=== PATIENT | male | born 1955 | race Caucasian/White ===

== ENCOUNTER 2019-01-09 09:35 | Inpatient (IN) | payer MEDICAID ==
--- NOTE | 2019-01-09 09:49 | EDPHY ---
H & P Time Seen by Provider: 01/09/19 09:45 HPI/ROS: CHIEF COMPLAINT: Chest pain HISTORY OF PRESENT ILLNESS: Patient has history of bypass surgery and multiple stents last place in 2014. He presents with his typical angina symptoms which are left-sided chest pain radiating to his left arm which started at 8:00 a.m. In front of his computer. He is usually pretty active and is an avid cyclist, but usually has his angina symptoms when he is sitting still which is typical. No cough or shortness of breath, no fevers or chills. REVIEW OF SYSTEMS: Eye: no change in vision ENT: no sore throat Cardiac: HPI Pulmonary: no cough or SOB Abdomen: no vomiting, diarrhea, abdominal pain Musculoskeletal: He does have a little bit of left leg tingling and pain today. Skin: no rash Neuro: no headache Constitutional: no fever : no urinary symptoms A comprehensive 10 point review of systems is otherwise negative aside from elements mentioned in the history of present illness. PAST MEDICAL HISTORY: VT in 2000, coronary bypass surgery, multiple stenting, appendectomy and tonsillectomy Social history: Current nonsmoker General Appearance: Alert and conversant, cooperative. Eyes: No scleral icterus. ENT, Mouth: Normal mucous membranes. Respiratory: Normal respiratory effort, breath sounds equal, lungs are clear to auscultation. Cardiovascular: Regular rate and rhythm. Gastrointestinal: Abdomen is soft and non tender. Neurological: Alert, face symmetric, normal motor and sensory in extremities. Skin: Warm and dry, no rashes. Musculoskeletal: No peripheral edema. No calf tenderness. Good peripheral pulses in both feet. Psychiatric: Not agitated. Emergency Department course/MDM: Patient took a baby aspirin and Plavix today. Call is placed to [facility]. Sublingual nitroglycerin. Does not have ST elevation on EKG. The symptoms are reminiscent of previous ACS. Reyna B for cardiology, 1010. Admission for cardiology consultation and further evaluation. Smoking Status: Former smoker Constitutional: Initial Vital Signs Temperature (C) 36.5 C 01/09/19 09:37 Heart Rate 57 L 01/09/19 09:37 Respiratory Rate 01/09/19 09:37 Blood Pressure 151/78 H 01/09/19 09:37 O2 Sat (%) 96 01/09/19 09:37 O2 Delivery Mode Room Air Allergies/Adverse Reactions: No Known Drug Allergies Allergy (Unknown, Verified 01/09/19 09:37) Unknown Home Medications: Medication Instructions Recorded Clopidogrel Bisulfate [Plavix (*)] 75 mg PO DAILY 08/26/14 Ranolazine [Ranexa] 500 mg PO BID #60 tab.er 08/27/14 Herbals/Supplements -Info Only 1 ea PO DAILY 09/22/14 Metoprolol Succinate Xr [Toprol Xl 50 mg PO HS 09/22/14 50 mg (*)] [place]-3 Fatty Acids [Fish Oil 1000 1,000 mg PO DAILY 09/22/14 mg (*)] Aspirin [Aspirin 81mg (*)] 81 mg PO DAILY 10/15/14 Multivitamins [Multivitamin (*)] 1 tab PO DAILY 10/15/14 Cholecalciferol Vit D3 [Vitamin D3 1,000 units PO DAILY 01/09/19 (*)] Simvastatin [Zocor] 20 mg PO HS 01/09/19 Vitamin B Complex [Vitamin B 1 each PO DAILY 01/09/19 Complex (OTC)] Medical Decision Making - Diagnostics EKG Interpretation: 12-lead EKG interpreted by me; official reading is in computer system. My interpretation is sinus rhythm with ID [id number] and incomplete right bundle branch block. Imaging Results: Imaging Impressions Chest X-Ray 01/09/19 09:58 Impression: 1. No acute pulmonary disease. 2. Previous cardiac surgery with atherosclerotic aorta. Imaging: I viewed and interpreted images myself Differential Diagnosis: Differential diagnosis considered for chest pain including but not limited to myocardial ischemia, aortic dissection, pericarditis, pulmonary embolus, chest wall pain, pleural inflammation and pulmonary infectious causes. Consult/Admit Bed Type: [facility] for Dr. Downs 1018 - Data Points Laboratory Results: Laboratory Results 01/09/19 09:50 01/09/19 09:50 01/09/19 01/09/19 01/09/19 09:54 09:50 09:50 WBC 3.65 10^3/uL L 10^3/uL (3.80-9.50) RBC 4.78 10^6/uL 10^6/uL (4.40-6.38) Hgb 15.1 g/dL g/dL (13.7-17.5) Hct 46.0 % % (40.0-51.0) MCV 96.2 fL fL (81.5-99.8) MCH 31.6 pg pg (27.9-34.1) MCHC 32.8 g/dL g/dL (32.4-36.7) RDW 14.0 % % (11.5-15.2) Plt Count 148 10^3/uL L 10^3/uL (150-400) MPV 9.2 fL fL (8.7-11.7) Neut % (Auto) 41.6 % % (39.3-74.2) Lymph % (Auto) 37.3 % % (15.0-45.0) [place] % (Auto) 16.7 % H % (4.5-13.0) Eos % (Auto) 3.3 % % (0.6-7.6) Baso % (Auto) 0.8 % % (0.3-1.7) Nucleat RBC Rel Count 0.0 % % (0.0-0.2) Absolute Neuts (auto) 1.52 10^3/uL L 10^3/uL (1.70-6.50) Absolute Lymphs (auto) 1.36 10^3/uL 10^3/uL (1.00-3.00) Absolute Monos (auto) 0.61 10^3/uL 10^3/uL (0.30-0.80) Absolute Eos (auto) 0.12 10^3/uL 10^3/uL (0.03-0.40) Absolute Basos (auto) 0.03 10^3/uL 10^3/uL (0.02-0.10) Absolute Nucleated RBC 0.00 10^3/uL 10^3/uL (0-0.01) Immature Gran % 0.3 % % (0.0-1.1) Immature Gran # 0.01 10^3/uL 10^3/uL (0.00-0.10) Sodium 138 mEq/L mEq/L (135-145) Potassium 4.6 mEq/L mEq/L (3.5-5.2) Chloride 103 mEq/L mEq/L (97-110) Carbon Dioxide 28 mEq/l mEq/l (22-31) Anion Gap 7 mEq/L mEq/L (6-14) BUN 29 mg/dL H mg/dL (7-23) Creatinine 0.9 mg/dL mg/dL (0.7-1.3) Estimated GFR > 60 Glucose 106 mg/dL H mg/dL (70-100) Calcium 9.0 mg/dL mg/dL (8.5-10.4) POC Troponin I 0.01 ng/mL ng/mL (0.00-0.08) Medications Given: Nitroglycerin (Nitrostat) 0.4 mg SL Q5M PRN PRN Reason: Chest Pain Last Admin: 01/09/19 10:03 Dose: 0.4 mg Discontinued Medications Sodium Chloride (Ns) 500 mls @ 1,000 mls/hr IV EDNOW ONE PRN Reason: Protocol Stop: 01/09/19 10:31 Last Admin: 01/09/19 10:05 Dose: 500 mls Point of Care Test Results: Chemistry 01/09/19 09:54 POC Troponin I 0.01 ng/mL ng/mL (0.00-0.08) Departure - Departure Disposition: [facility] Inpatient Acute Clinical Impression: Chest pain Qualifiers: Chest pain type: unspecified Qualified Code(s): R07.9 - Chest pain, unspecified Condition: Good
[2019-01-09] MEDS ORDERED: NITROGLYCERIN 0.4 MG BTL SL PRN (09:57)
--- NOTE | 2019-01-09 10:01 | CPEKG ---
Test Reason : OPEN Blood Pressure : / mmHG Vent. Rate : 056 BPM Atrial Rate : 056 BPM P-R Int : 224 ms QRS Dur : 114 ms QT Int : 424 ms P-R-T Axes : 034 044 041 degrees QTc Int : 410 ms Sinus rhythm Prolonged VT interval Probable left atrial enlargement Incomplete right bundle branch block Confirmed by Fabian Dale ([id number]) on 01/09/2019 10:00:19 AM Referred By: Fabian Dale Confirmed By:Fabian Dale
[2019-01-09] MEDS ORDERED: NS 500 ML IV ONE (10:02)
[2019-01-09 10:08] LABS: PLATELET COUNT 148 10^3/uL (150-400)
[2019-01-09] MEDS ORDERED: ONDANSETRON 4 MG/2 ML VIAL IVP PRN (12:43)
--- NOTE | 2019-01-09 13:21 | PDGENHP ---
History and Physical History and Physical: CC: Chest pain HISTORY: This patient with coronary disease/revacularizations comes in with chest pain he says mimicks his previous UT and angina pain. States he has onset this am 8 Oclock of ache in anterior L chest and L upper arm. Occaisional waxing and waning but essentially has been constantly present for 8 hours now. No SOB, no cough, no nausea, no sweats, no leg pain or swelling. No help from nitroglycerin tabs so far. No fever sxs There is no change in pain with any chest/shoulder movement, position change, or other activity. Not pleuritic. No other recent episodes of anginal like sxs, nor sx's of CHF or arrhythmia. No travel. Is a fanatic bicycler, rode 65 miles yesterday at usual pace with no symptoms or problems. 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 I have reviewed the list and ordered appropriate medicines. PHYSICAL EXAMINATION: Vital Signs: All stable without fever Screed Person: Sinus Examination: General: alert, oriented, good mentation, relaxed Skin: warm, dry, good color, no rash HEENT: normal Neck: no mass or jvd Chest: no tenderness in chest wall or L shoulder region Resps: relaxed Lungs: clear breath sounds Heart: regular, no murmur Abdomen: soft, nondistended, nontender, +BS, no mass Upper Extremities: normal w no arm edema Lower Extremities: no edema, warm No Bleeding or bruising Neurologic: normal speech/language, normal emergency man, no focal weakness IV site: looks normal LABORATORY DATA: Minimal neutropenia otherwise normal CBC BUN is slightly high on chemistry. 1st and second troponin normal RADIOLOGY STUDIES: I reviewed chest x-ray done in the ER which shows no acute abnormalities. He has sternal wires and bypasses visible. No heart failure or other cardiopulmonary features 12 LEAD EKG: I reviewed tracing from ER showing sinus rhythm without acute ischemic changes There is abnormality suggesting left atrial enlargement ECHOCARDIOGRAM: I reviewed images w dr Winchester. No wall motion abnormality, good EF, no valve issues ASSESSMENT: * Chest Pain at rest * so far rules out for UT * absence of hemodynamic instability, CHF or resp failure, or arrythmia * Known CAD, 8 years out from CABG, stents 1 month after cabg and again in 2013 * hypercholesterolemia on med PLANS: * observe on quality assurance monitor final * continue all usual meds * serial troponin * repeat ekg * cardiology is following * plan nuc stress in am unless he develops instability or other indication for angiography (nuc stress w lexiscan due to prior finding of inadequate HR responses on treadmill for valid test, likely due to B Blockers, age, and his unusually high fitness level) I have reviewed the patient's case in detail with Dr. Pineda Winchester I have reviewed the patient's past medical records as part of this assessment, including hospital and cardiology clinic records
--- NOTE | 2019-01-09 14:04 | HOSPPROG ---
Hospitalist Progress Note Objective: Vital Signs Temp Pulse Resp BP Pulse Ox 37.0 C 72 18 110/73 97 01/09/19 12:37 01/09/19 12:37 01/09/19 12:37 01/09/19 12:37 01/09/19 12:37 01/08/19 01/09/19 01/10/19 06:59 06:59 06:59 Intake Total 500 Balance 500 ICD10 Worksheet Patient Problems: Problems Problem Status Onset Chest pain Acute Angina at rest Acute CAD (coronary artery disease) Acute
--- NOTE | 2019-01-09 16:11 | GCON ---
[f rep st] CONSULTATION CARDIOLOGY CONSULTATION DATE OF CONSULTATION: 01/09/2019 PRIMARY HISTOLOGIC TECHNICIAN: Souleymane Lopez MD. REASON FOR CONSULTATION: We were asked by Dr. Downs to evaluate this patient for his chest pain. HISTORY OF PRESENT ILLNESS: The patient is a 63-year-old male with severe CAD. He had bypass in , multiple PCIs, and an NH in 2000. His most recent percutaneous intervention involved a complex ro tational atherectomy to his left main and LAD systems, and also stenting to his circumflex. This was done in September 2014. He has had episodes of chest pain since then. However, what brings him in t janet is severe left-sided chest pain with radiation into his left arm. He denies any associated dysp garo, diaphoresis, or nausea. Pain is currently present at a 7/10, and he feels like symptoms are not relieved with nitroglycerin administration. He is active and actually cycled 65 miles yesterday, which is his typical. He reports he does not ge t his heart rate above 109, likely secondary to the beta-ozzy effect in his system. PAST MEDICAL HISTORY: 1. Dyslipidemia. 2. Hypertension. 3. CAD. 4. PVCs. 5. BPH. ALLERGIES: No known drug allergies. FAMILY HISTORY: Positive for CAD. MEDICATIONS: Outpatient medications are listed as vitamin B-complex, vitamin D3, simvastatin, Ranexa , omega-3 fatty acids, multivitamin, metoprolol succinate, clopidogrel, and aspirin. SOCIAL HISTORY: The patient is , and his is present in the room. He is a nonsmoker. He has 2 children. He has moderate alcohol intake. REVIEW OF SYSTEMS: As per HPI. A complete 10-point review of systems was obtained and was negative for what is dictated. PHYSICAL EXAMINATION: VITAL SIGNS: Blood pressure of 110/73, heart rate 72, respirations 18, O2 sat uration 97% on room air, and temperature 98.6 degrees Fahrenheit. GENERAL: He is a very pleasant ma le, in no apparent distress. HEENT: Normocephalic, atraumatic. Eyes are without scleral icterus. HEART: Regular rate and rhythm without rubs, gallops, or murmurs. LUNGS: Clear to auscultation. A BDOMEN: Soft and nontender with normoactive bowel sounds. : No Jaquez present. SKIN: Warm and d ry with no peripheral edema. PSYCHIATRIC: Normal mood and affect. NEUROLOGICAL: No focal deficits detected. LABORATORY DATA: BMP with sodium 138, potassium 4.6, chloride 103, CO2 of 28, BUN 29, creatinine 0.9 , and glucose 106. Troponin 0.01. WBC 3.65, hemoglobin 15.1, hematocrit 46, and platelet count 148. Chest x-ray, personally reviewed, shows previous cardiac surgery with aortic atherosclerosis, witho ut any active pulmonary disease process. A 12-lead ECG, personally interpreted, demonstrates sinus r hythm with a left atrial abnormality and an incomplete right bundle branch block without ischemic daniel nges. His EKG is stable compared to previous office visits. His care was discussed with Dr. Lopez and Dr. Velazquez. IMPRESSION/PLAN: The patient is a 63-year-old male, who presents with chest pain. 1. Chest pain. He describes chest pain that has not resolved. He has been given 1 dose of nitrogly cerin thus far. He reports his symptoms typically do not respond to administration of nitroglycerin. His ECG currently appears nonischemic, and his troponin is reassuringly low. We will plan to cycle his cardiac enzymes and check an echocardiogram to rule out wall motion abnormality. If these are s table, he likely can proceed to nuclear stress testing in the morning. 2. Dyslipidemia. His last labs were reviewed. Last LDL was 65 in September. 3. Coronary artery disease. He has severe coronary artery disease with a very complex procedure in 2013. His films were reviewed today with Dr. Velazquez. /[id number]/MODL
--- NOTE | 2019-01-09 16:35 | ECHO ---
[email or web address] [address] [address] Main: [phone] Fax: [email or web address] Echocardiogram Name: LEANDRO FRY MR#: [id number] Study Date: 01/09/2019 Study Time: 01:58 PM Date of : 1955 Age: 63 year(s) Height: 188 cm (74 in.) Weight: 83.92 kg (185 lb.) BSA: 2.1 m2 Gender: Male Examination: Echo Indication: cp Image Quality: Adequate Contrast: Requested by: Reyna Gallardo BP: 124 mmHg/73 mmHg Heart Rate: Rhythm: Indication: cp Procedure Staff Account Maintenance Representative: Henrietta Davila [facility] Reading Physician: Pineda Winchester MD Requesting Provider: Conclusions: Normal study Measurements: Chambers Valvular Assessment AV/MV Valvular Assessment TV/PV Normal Normal Normal Name Value Range Name Value Range Name Value Range Ao Krys (2D): 3.6 cm (1.4 cm-2.6 AV Vmax: 1.11 m/s (1 m/s-1.7 TR Vmax: 1.86 mm/s ( - ) cm) m/s) TR PGmax: 14 mmHg ( - ) IVSd (2D): 1.2 cm (0.6 cm-1.1 AV maxP mmHg ( - ) syst. PAP: 19 mmHg ( - ) cm) AV meanP mmHg ( - ) PV Vmax: 1.18 m/s (0.6 m/s-0.9 LVDd (2D): 5.6 cm (4.2 cm-5.9 RACHELLE (VTI): 2.2 cm ( - ) m/s) cm) MV E Vmax: 0.69 m/s ( - ) PV PGmax: 6 mmHg ( - ) LVDs (2D): 3.8 cm (2.1 cm-4 MV A Vmax: 0.51 m/s ( - ) cm) MV E/A: 1.35 ( - ) LVPWd (2D): 1.0 cm (0.6 cm-1 cm) MV PHT: 0.073 s ( - ) LVOTd 2.0 cm 2.0 cm mm MVA (PHT): 3.0 s ( - ) LVEF (MOD4): 60 % (>=55 %) Visual EF: 55 % RVDd(2D): 3.9 cm (1.9 cm-3.8 cmmm) Continued Measurements: Chambers Valvular Assessment AV/MV Valvular Assessment TV/PV Name Value Name Value Name Value LADs: 3.9 cm MV DecTime: 243 m/s CVP (est.): 5 mmHg LADs Lon.6 cm MV E' Septal: 0.09 m/s LA Area: 20.6 cm2 MV E/E' Septal: 7.60 LA Volume: 74 ml MV E/E' Lateral: 4.70 Patient: LEANDRO FRY Study Date: 01/09/2019 Page 1 of 2 01:58 PM LA Volume Index: 35.2 ml/m2 RA Area: 22.1 cm2 Additional Vessels Name Value Ao Ascendin.5 cm Inferior Vena Cava: 2.2 cm Findings: Left Ventricle: Normal size left ventricle. Normal global systolic LV function. The ejection fraction is visually estimated to be 55 %. No regional wall motion abnormality. Normal diastolic LV function. Right Ventricle: Mildly dilated right ventricle. Normal RV function. Left Atrium: The left atrium is mildly dilated. Right Atrium: The right atrium is mildly dilated. Mitral Valve: The mitral valve is normal in appearance and function. Mild mitral valve regurgitation is present. No mitral stenosis is present. Aortic Valve: The aortic valve is tri-leaflet. Trivial aortic valve regurgitation. No aortic valve stenosis is present. Tricuspid Valve: The tricuspid valve is normal in appearance and function. Mild tricuspid regurgitation is present. The pulmonary artery pressure is normal. Right ventricular systolic pressure measures 19mmHg. Pulmonic Valve: The pulmonic valve is normal in appearance and function. Mild pulmonic valve regurgitation is noted. Aorta: The aorta is normal. Normal size aortic root measuring 3.6 cm. Normal size ascending aorta measuring 3.5 cm. IVC: The IVC is normal sized. Pericardium: No pericardial effusion. No pleural effusion. (No Signature Object) Patient: LEANDRO FRY Study Date: 01/09/2019 Page 2 of 2 01:58 PM [id number]
[2019-01-09] MEDS: ACETAMINOPHEN 325 MG TAB PO PRN (17:29)
[2019-01-09] MEDS ORDERED: ZOLPIDEM TARTRATE 5 MG TAB PO PRN (17:57)
[2019-01-09] MEDS: METOPROLOL SUCCINATE XR 50 MG TAB PO SCH (20:33)
[2019-01-09] MEDS: RANOLAZINE 500 MG TAB.ER PO SCH (20:33)
[2019-01-09] MEDS: MELATONIN 3 MG TAB PO SCH (20:33)
[2019-01-09] MEDS: ATORVASTATIN CALCIUM 10 MG TAB PO SCH (20:33)
[2019-01-10] MEDS: ACETAMINOPHEN 325 MG TAB PO PRN (09:25)
[2019-01-10] MEDS: MULTIVITAMINS 1 EACH TAB PO SCH (09:25)
[2019-01-10] MEDS: CHOLECALCIFEROL VIT D3 1,000 UNITS TAB PO SCH (09:25)
[2019-01-10] MEDS: VITAMIN B COMPLEX 1 EA CAP/TAB PO SCH (09:25)
[2019-01-10] MEDS: RANOLAZINE 500 MG TAB.ER PO SCH ×2 (09:25→21:31)
[2019-01-10] MEDS: ASPIRIN 81 MG CHEWABLE TAB PO SCH (09:25)
[2019-01-10] MEDS: OMEGA-3 FATTY ACIDS 1,000 MG CAP PO SCH (09:25)
[2019-01-10] MEDS: CLOPIDOGREL BISULFATE 75 MG TAB PO SCH (09:25)
[2019-01-10] MEDS ORDERED: REGADENOSON 0.4 MG/5 ML SYR IVP ONE (09:43)
--- NOTE | 2019-01-10 10:01 | ASMTCMCOM ---
CM Note CM Note Notes: Pt is a 63 y/o male who presented to the ED with left sided chest pain, he has a hx of CAD, bypass and multiple stents. \Pt is and lives with his in [place]. Pt is an avid cyclist and lives independently. No orders for OT/PT. No CM needs identified at this time; CM will follow for changes. D/C Plan: Anticipate independent. Date Signed: 01/10/2019 10:00 AM Electronically Signed By:Micaela Vallejo
--- NOTE | 2019-01-10 11:18 | PDCARPN ---
Cardiology Progress Note Assessment/Plan: Assessment/Plan: 63-year-old male with history of coronary disease. Status post CABG in 2010 and complex PCI including rotational atherectomy to the left main and LAD as well as left circumflex stenting in 2013. Other history includes hypertension and dyslipidemia. Admitted with left arm pain concerning for anginal equivalent. EKG nonischemic, echo without wall motion abnormalities , serial troponins are negative. Had Lexiscan nuclear stress test today. Stress only nuclear images show a territory of decreased perfusion in the septum , therefore rest imaging is planned for tomorrow. 1. Left arm pain: Not completely typical for his usual angina. Most of his testing has been reassuring. However, given his complex coronary history I do think we should plan for rest nuclear imaging tomorrow for better understanding of whether his septal defect is artifact, infarct, or ischemia. No indication for urgent cardiac catheterization. Continue medical management as he is already on. 2. Hypertension: Well controlled here 3. Dyslipidemia: Continue statin. Recent LDL was at goal. 4. Chronic history of PVCs: He is on metoprolol. Greater than 30 min spent in chart review, study review, direct patient contact. 01/10/19 11:50 Subjective: He feels well. He does not have actual chest pain but he does have ongoing left arm discomfort. His previous anginal equivalent was arm discomfort, jaw discomfort and back pain. This feels slightly different but because of his coronary history he came to the hospital. He does not have associated dyspnea, nausea, or diaphoresis. When he ambulates he does not have worsening arm pain. 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 Chacko and Dr. Adkins) Objective: Vital Signs (8 Hrs) Temp Pulse Resp BP Pulse Ox 01/10/19 08:00 36.9 C 54 L 20 120/75 93 01/10/19 04:00 36.7 C 50 L 18 113/72 92 Intake/Output (24 Hrs) 01/09/19 01/10/19 01/11/19 05:59 05:59 05:59 Intake Total 1000 Balance 1000 Intake: Oral (ml) 500 IV Infused (ml) 500 Other: Weight 83.915 kg Intake Quantity Yes Sufficient No acute distress. Regular rate and rhythm without murmur or gallop Lungs clear to auscultation without wheeze rhonchi or rales No lower extremity edema Result Diagrams: 01/09/19 09:50 01/09/19 09:50 Cardiac Labs: Cardiac Lab Results (72 Hrs) 01/09/19 01/09/19 18:22 13:50 Troponin I < 0.012 < 0.012 EKG: Serial EKGs reviewed and compared with prior outpatient EKG: Sinus rhythm with right bundle branch block. No ischemic changes. Telemetry: Sinus rhythm ICD10 Worksheet Patient Problems: Problems Problem Status Onset CAD (coronary artery disease) Acute Angina at rest Acute Chest pain Acute
[2019-01-10] MEDS: LITHIUM CARBONATE 300 MG TAB PO SCH (12:59)
--- NOTE | 2019-01-10 16:09 | PDMN ---
Medical Necessity Medical necessity: Change to IP, as of 01/10/19, per MD & MCG M-40; los >2 mn for ongoing management of L arm pain concerning for anginal equivalent; nuclear imaging shows decreased perfusion in septum (r/o artifact vs infarct vs ischemia ); requiring further workup & monitoring; comorbid complex coronary hx
--- NOTE | 2019-01-10 16:35 | CPR ---
[f rep st] NONINVASIVE CARDIAC PROCEDURE REPORT DATE OF PROCEDURE: 01/10/2019 PROCEDURE: Lexiscan injection of Lexiscan myocardial perfusion imaging study. INDICATION FOR STRESS TESTING: Chest pain, known history of coronary artery disease, right bundle br anch block. PRE: After obtaining informed consent, and ensuring patient's n.p.o. status for greater than 12 hour s, patient was placed on electrocardiogram. Initial EKG shows sinus rhythm; first-degree AV block; r ight bundle branch block; submillimeter ST elevation in anterior leads, suggesting possible early rep ol. Patient denies any chest pain, pressure, or symptoms suggesting of ischemia. Initial blood pres sure 112/76, saturation 95%. INJECTION: Patient was given Lexiscan slow IV push, followed by nuclear isotope. Within 1 minute of injection, the patient's heart rate did jump up to 90 beats per minute, no significant EKG changes, blood pressure was 133/87. Patient reporting no chest pain or pressure, but does report flushing sen sation. Within 5 minutes of injection, patient reporting all symptoms subsided, heart rate returning back down to 78 beats per minute. Blood pressure remained stable, saturation 96%. IMPRESSION: A 63-year-old male with known history of coronary artery disease, admitted for chest pre ssure, undergoing further risk stratifying with Lexiscan myocardial perfusion imaging study. No ches t pain, pressure, or symptoms suggestive of ischemia with injection. Did report mild flushing sensat ion, which dissipated within 5 minutes postinjection. Vital signs remained stable. No significant e lectrocardiogram changes throughout the procedure. Patient will be taken to nuclear medicine for pos t-stress imaging at this time. /[id number]/MODL
--- NOTE | 2019-01-10 16:57 | HOSPPROG ---
Hospitalist Progress Note Assessment/Plan: * Chest pain - reminiscent of previous angina -still having CP today -stress images abnormal - needs follow-up rest images * CAD/CABG/stent -extensive CAD history - well known to Dr. Lopez -on Ranexa * Hyperlipidemia -statin * Bipolar -[place] Subjective: Still with left arm/shoulder and chest pain today 03/20. Objective: Vital Signs Temp Pulse Resp BP Pulse Ox 36.4 C 61 18 101/54 L 94 01/10/19 12:00 01/10/19 12:00 01/10/19 12:00 01/10/19 12:00 01/10/19 12:00 Laboratory Tests 01/09/19 01/09/19 01/10/19 13:50 18:22 11:46 Troponin I < 0.012 < 0.012 < 0.012 hari ocasio regarding stress test today EKG viewed, my personal interpretation is - no acute ischemic change - Physical Exam Constitutional: no apparent distress, appears nourished, not in pain Cardiovascular: regular rate and rhythym, no murmur, rub, or gallop Respiratory: no respiratory distress, no rales or rhonchi, clear to auscultation Gastrointestinal: normoactive bowel sounds, soft, non-tender abdomen, no palpable masses Skin: no rashes or abrasions, no fluctuance, no induration Neurologic: AAOx3, sensation intact bilaterally Psychiatric: interacting appropriately, not anxious, not encephalopathic, thought process linear ICD10 Worksheet Patient Problems: Problems Problem Status Onset Chest pain Acute Angina at rest Acute CAD (coronary artery disease) Acute
[2019-01-10] MEDS ORDERED: LITHIUM CARBONATE 300 MG TAB PO SCH (21:00)
[2019-01-10] MEDS: ATORVASTATIN CALCIUM 10 MG TAB PO SCH (21:28)
[2019-01-10] MEDS: METOPROLOL SUCCINATE XR 50 MG TAB PO SCH (21:28)
[2019-01-10] MEDS: MELATONIN 3 MG TAB PO SCH (21:32)
[2019-01-11] MEDS: OMEGA-3 FATTY ACIDS 1,000 MG CAP PO SCH (08:11)
[2019-01-11] MEDS: CLOPIDOGREL BISULFATE 75 MG TAB PO SCH (08:11)
[2019-01-11] MEDS: ACETAMINOPHEN 325 MG TAB PO PRN (08:11)
[2019-01-11] MEDS: LITHIUM CARBONATE 300 MG TAB PO SCH (08:11)
[2019-01-11] MEDS: CHOLECALCIFEROL VIT D3 1,000 UNITS TAB PO SCH (08:11)
[2019-01-11] MEDS: RANOLAZINE 500 MG TAB.ER PO SCH (08:11)
[2019-01-11] MEDS: ASPIRIN 81 MG CHEWABLE TAB PO SCH (08:11)
[2019-01-11] MEDS: MULTIVITAMINS 1 EACH TAB PO SCH (08:11)
[2019-01-11] MEDS: VITAMIN B COMPLEX 1 EA CAP/TAB PO SCH (08:11)
[2019-01-11 11:56] VITALS: BP 123/63
[2019-01-11] MEDS ORDERED: KETOROLAC 30 MG/1 ML SDV IVP ONE (14:08)
--- NOTE | 2019-01-11 14:18 | PDCARPN ---
Cardiology Progress Note Assessment/Plan: Assessment/Plan: 63-year-old male with history of coronary disease. Status post CABG in 2010 and complex PCI including rotational atherectomy to the left main and LAD as well as left circumflex stenting in 2013. Other history includes hypertension and dyslipidemia. Admitted with left arm pain concerning for anginal equivalent. EKG nonischemic, echo without wall motion abnormalities , serial troponins are negative. Had Lexiscan nuclear stress test decreased perfusion in the septum, therefore rest imaging is planned for tomorrow. 1. Left arm pain: Not completely typical for his usual angina. Reassuring noninvasive imaging. No indication for urgent cardiac catheterization. Continue medical management as he is already on. Single dose of toradol to help distinguish musculoskeletal pain. Likely d/c home today with outpt f/u with Dr. Lopez. 2. Hypertension: Well controlled here 3. Dyslipidemia: Continue statin. Recent LDL was at goal. 4. Chronic history of PVCs: He is on metoprolol. d/w family and Dr. Chacko 01/11/19 14:13 Subjective: Still having left arm and left leg pain which is overall dissimilar to his prior angina. No SOB or nausea Reviewed/Discussed With: family, hospitalist Objective: Vital Signs (8 Hrs) Temp Pulse Resp BP Pulse Ox 01/11/19 11:53 36.9 C 58 L 20 123/63 H 95 01/11/19 08:00 36.4 C 58 L 16 111/64 94 Intake/Output (24 Hrs) 01/10/19 01/11/19 01/12/19 05:59 05:59 05:59 Intake Total 1390 170 Balance 1390 170 Intake: Oral (ml) 1390 170 Other: Output Comment Toilet per pt per pt Number of Voids Toilet 5 1 Number of Stools Toilet 1 1 No acute distress. Regular rate and rhythm without murmur rub gallop Lungs clear without wheezes rhonchi rales No lower extremity edema Result Diagrams: 01/09/19 09:50 01/09/19 09:50 Telemetry: Sinus rhythm with PVCs ICD10 Worksheet Patient Problems: Problems Problem Status Onset CAD (coronary artery disease) Acute Angina at rest Acute Chest pain Acute
--- NOTE | 2019-01-11 15:11 | ASMTLACE ---
LONNIE Length of stay for Answers: 1 day current admission Comorbidities - select Answers: Coronary Artery Disease all that apply # of Emergency department Answers: 1-2 visits in the last 6 months Score: 4 Date Signed: 01/11/2019 03:10 PM Electronically Signed By:Anali Sewell RN
--- NOTE | 2019-01-11 15:13 | ASMTDCNOTE ---
Case Management Discharge Discharge Order Complete? Answers: Yes Patient to Obtain Answers: Independently Medications Transportation Arranged Answers: Family/Friends Discharge Comments Notes: Patient medically cleared for discharge,no current needs identified. Date Signed: 01/11/2019 03:12 PM Electronically Signed By:Anali Sewell RN
--- NOTE | 2019-01-11 22:22 | GDS ---
[f rep st] DISCHARGE SUMMARY DISCHARGE DIAGNOSES: 1. Chest and arm pain. Possible anginal equivalent. 2. Coronary artery disease, status post previous coronary CABG and stent. 3. Hyperlipidemia. 4. Bipolar. HISTORY: The patient is a 63-year-old male with an extensive coronary artery disease history, includ ing previous CABG and previous stent. He is well known to Dr. Lopez. He presented with chest and l eft arm pain reminiscent of his previous angina. He was admitted to the hospital. Troponins and EKG s were negative. His initial stress images were abnormal, however, follow up comparison to rest imag es revealed no reversible ischemia. The patient was very concerned because he has a history of a fal se negative stress test in the past. He continues to have pain. This was discussed extensively with Dr. Agarwal on-call for Dr. Lopez. She did not see an indication for an emergent cardiac catheterizat ion. The patient will follow up closely with Dr. Lopez, who knows his anatomy very well to decide w hether an elective catheterization is indicated. He was given a dose of IV Toradol prior to discharg e to see if that improves his pain with Dr. Agarwal having suspicion for musculoskeletal pain. DISCHARGE MEDICATIONS: Please see computerized record for full detailed list. There are no new medi cations given at time of hospital discharge. ADDITIONAL DISCHARGE INSTRUCTIONS: Follow up closely with Dr. Lopez to determine if elective cardia c catheterization is indicated. Greater than 30 minutes' time was spent in arranging this discharge. Patient was seen and examined b y on the day of discharge. /[id number]/MODL
--- NOTE | 2019-01-14 11:26 | CPEKG ---
Test Reason : OPEN Blood Pressure : / mmHG Vent. Rate : 055 BPM Atrial Rate : 055 BPM P-R Int : 232 ms QRS Dur : 115 ms QT Int : 441 ms P-R-T Axes : 029 047 049 degrees QTc Int : 422 ms Sinus rhythm Prolonged LA interval Probable left atrial enlargement Incomplete right bundle branch block Confirmed by Ata Green ([id number]) on 01/14/2019 11:26:00 AM Referred By: Tucker Downs Confirmed By:Ata Green
--- NOTE | 2019-01-14 11:49 | CPEKG ---
Test Reason : OPEN Blood Pressure : / mmHG Vent. Rate : 057 BPM Atrial Rate : 057 BPM P-R Int : 230 ms QRS Dur : 111 ms QT Int : 418 ms P-R-T Axes : 041 035 049 degrees QTc Int : 407 ms Sinus rhythm Prolonged WI interval Probable left atrial enlargement Incomplete right bundle branch block Confirmed by Ata Green ([id number]) on 01/14/2019 11:49:18 AM Referred By: Tucker Downs Confirmed By:Ata Green
== END 2019-01-11 15:40 | disposition home or self-care (01) | DRG 198 ==
LOC: F2W 12:20 → OBSVTOIN 01-10 14:35
PROVIDERS: ADMIT Internal Medicine; ATTEND Internal Medicine
DX: R07.89 Other chest pain (principal); I25.118 Atherosclerotic heart disease of native coronary artery with other forms of angina pectoris; E78.00 Pure hypercholesterolemia, unspecified; E86.9 Volume depletion, unspecified; Z95.1 Presence of aortocoronary bypass graft; Z95.5 Presence of coronary angioplasty implant and graft; F31.9 Bipolar disorder, unspecified; N40.0 Benign prostatic hyperplasia without lower urinary tract symptoms
CPT/HCPCS: 84484-ER; A9500; G0378; J1885; J2405; J2785

== ENCOUNTER 2019-01-19 07:28 | Day surgery (SDC) | payer MEDICAID ==
[~2019-01-19 07:28] MED LIST: ASPIRIN EC 325 MG TAB PO ONE; DIAZEPAM 5 MG TAB PO ONE; FAMOTIDINE 20 MG TAB PO ONE; NS 1,000 ML IV ONE; diphenhydrAMINE 25 MG CAP PO ONE
[2019-01-19 08:04] LABS: PLATELET COUNT 156 10^3/uL (150-400)
[2019-01-19 08:35] LABS: INR 1.09 (0.83-1.16); PROTIME(PATIENT) 13.7 SEC (12.0-15.0)
[2019-01-19] MEDS ORDERED: LIDOCAINE 1% 300 MG/30 ML SDV ONE (08:41)
[2019-01-19] MEDS ORDERED: MIDAZOLAM 2 MG/2 ML VIAL ONE ×2 (08:42→09:23)
[2019-01-19] MEDS ORDERED: fentaNYL 100 MCG/2 ML INJ ONE ×2 (08:42→09:24)
[2019-01-19] MEDS ORDERED: IOPAMIDOL (ISOVUE-370) 150 ML BTL IV ONE (08:42)
--- NOTE | 2019-01-19 09:02 | PDPROPOC ---
Sedation Plan of Care Sedation Plan of Care: vital signs stable, mental status noted, patient educated of risks, benefits, alternatives, patient can tolerate sedation ASA Classification: ASA 3 Planned drugs: fentanyl, midazolam Mallampati Score: Class 2 Mallampati Reference Image: Patient passed 3-3-2 rule?: Yes
--- NOTE | 2019-01-19 09:03 | PDHPUP ---
History & Physical Update H&P update statement: This history and physical update is based on an assessment of the patient which was completed after admission or registration (within 24 hours), but prior to the surgery/procedure. H&P update: H&P reviewed & patient examined, no change in patient's condition since H&P completed (CCS Clas IV Angina, no stress test, symptoms are unstable)
[2019-01-19] MEDS ORDERED: ATROPINE SULFATE 1 MG/10 ML SYR ONE (09:34)
[2019-01-19] MEDS ORDERED: EPINEPHrine 1 MG/10 ML SYR IVP ONE (09:34)
[2019-01-19] MEDS ORDERED: BIVALIRUDIN 250 MG/5 ML VIAL IV ONE (09:34)
--- NOTE | 2019-01-19 09:37 | PDDXCAT ---
Diagnostic Cath Note - . Date: 01/19/19 Cnc Lathe Machine Operator: John Indication: CCC Class III and IV angina on medical treatment - Procedure Access: right groin Procedure: left heart catheterization, coronary angiography, left ventriculogram - Materials Left Heart Cath size: 6F Left Heart Cath materials: JL4.0, JR4.0, pigtail - Findings-Left Heart Catheterization LM: The left main trifurcates into a LAD, Circumflex and Ramus system. LAD: There is anastamosis of the SIMMONS to the LAD. There is significant plaque formation in the proximal LAD with a complete occlusion distal to the diagonal takeoff. SIMMONS to the LAD is widely patent. LCX: The left circumflex has previously been stented. There is competitive flow in the obtuse marginal vessel downstream. There is a 90% stenosis of the obtuse marginal segment proximal to a patent graft to the obtuse marginal. RCA: The right coronary artery is 4mm in size and dominant. There is 30% ostial and mid right coronary disease. The vessel gives rise to a PDA and two PLV branches. NO flow limiting obstruction is identified. Ramus: The Ramus is a functional vessel. rSVG: The SVG graft is a bifurcating graft, the largest branch is anastamosed to the Ramus and the smaller pranch is anastamosed to the circ OM system. There is a 40% stenosis at the anastamosis of the branch of the SVG to the Obtuse marginal system. SIMMONS: The SIMMONS to the LAD is widely patent. MEHRAN: There MEHRAN to the Obtuse Marginal branch is totally occluded. EDP: 15mmHg LVEF: 55% Wall motion: On the LV gram there is normal LV systolic function. The EF is 55% . There is mid distal anterior wall and apical hypokinesis. 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 There is grade 1 MR on a pressurized injection. There is no gradient on pullback across the aortic valve. There is no evidence of shania dissection or aneurysm formation of the thoracic aorta. - Findings-Right Heart Catheterization AO: 108/57/78 Complications: NONE Estimated blood loss: <50ml Closure method: Angioseal Assessment: The patient has significant [place] vessel coronary artery disease with evidence of multiple previous stenting to the mid left circumflex, proximal left circumflex as well as to the left main in 08/2014 and to the LAD and LAD diagonal. The patient has four grafts; the SIMMONS to the LAD which is widely patent, the SVG which bifurcates to the Ramus and obtuse marginal and is widley patent, and the MEHRAN graft is either occluded or it is harvested as a free graft. Plan: The patient has severe [place] vessel coronary disease which should be managed medically to achieve a N-HDL less than 100mg/dL and LDL less than 70mg/dL. The patient may need ramped doses of Ranexa to control his angina. A nuclear stress to isolate the ischemia should be considered. Intervention: NONE Patient Problems: Problems Problem Status Onset Angina at rest Acute CAD (coronary artery disease) Acute Chest pain Acute
[2019-01-19] MEDS ORDERED: ATROPINE SULFATE 1 MG/10 ML SYR IVP PRN (10:16)
[2019-01-19] MEDS ORDERED: ONDANSETRON 4 MG/2 ML VIAL IVP PRN (10:16)
[2019-01-19] MEDS ORDERED: LITHIUM CARBONATE 300 MG CAP PO SCH (12:15)
[2019-01-19] MEDS ORDERED: RANOLAZINE 500 MG TAB.ER PO SCH (21:00)
[2019-01-19] MEDS ORDERED: ATORVASTATIN CALCIUM 10 MG TAB PO SCH (21:00)
[2019-01-19] MEDS ORDERED: METOPROLOL SUCCINATE XR 50 MG TAB PO SCH (21:00)
[2019-01-20] MEDS ORDERED: OMEGA-3 FATTY ACIDS 1,000 MG CAP PO SCH (09:00)
[2019-01-20] MEDS ORDERED: VITAMIN B COMPLEX 1 EA CAP/TAB PO SCH (09:00)
[2019-01-20] MEDS ORDERED: CLOPIDOGREL BISULFATE 75 MG TAB PO SCH (09:00)
[2019-01-20] MEDS ORDERED: CHOLECALCIFEROL VIT D3 1,000 UNITS TAB PO SCH (09:00)
[2019-01-20] MEDS ORDERED: MULTIVITAMINS 1 EACH TAB PO SCH (09:00)
[2019-01-20] MEDS ORDERED: ASPIRIN 81 MG CHEWABLE TAB PO SCH (09:00)
[2019-01-20] MEDS ORDERED: Lithium Carbonate 150 MG CAP PO SCH (09:00)
--- NOTE | 2019-01-23 11:54 | CPEKG ---
Test Reason : OPEN Blood Pressure : / mmHG Vent. Rate : 054 BPM Atrial Rate : 054 BPM P-R Int : 237 ms QRS Dur : 120 ms QT Int : 422 ms P-R-T Axes : 052 049 052 degrees QTc Int : 400 ms Sinus rhythm Prolonged ID interval Probable left atrial enlargement IVCD, consider atypical RBBB ST elevation, consider anterior injury Confirmed by Souleymane Loepz ([id number]) on 01/23/2019 11:53:52 AM Referred By: Souleymane Lpoez Confirmed By:Souleymane Lopez
== END 2019-01-19 14:32 | disposition home or self-care (01) ==
LOC: FCATH 07:28
PROVIDERS: ATTEND Internal Medicine Cardiovascular Disease
DX: I25.119 Atherosclerotic heart disease of native coronary artery with unspecified angina pectoris (principal); Z95.1 Presence of aortocoronary bypass graft; N40.0 Benign prostatic hyperplasia without lower urinary tract symptoms; E78.5 Hyperlipidemia, unspecified; I10 Essential (primary) hypertension
CPT/HCPCS: C1760; J0461; J0583; J1644; J2250; J3010; Q9967